=== PATIENT | female | born 1990 | race Caucasian/White ===

== ENCOUNTER 2018-04-24 16:34 | Emergency (ER) | payer OTHER ==
[~2018-04-24] VITALS: Ht 157.5 cm; Wt 54.4 kg
[~2018-04-24 16:34] MED LIST: ASCO500 PO; ASPI81CH PO; Aspir 8181 MG PO; BIRTH CONTROL; Bactrim Ds Tab1 EACH PO; CEPH500 PO; CIPRO; CITA20 PO; DHA100 MG PO; DIAZ5 PO; ENOX40I SC; HYDACE5 PO; HYDACE5325 PO; HYDMOR4 PO; IBUP800 PO; KETO10 PO; MULVITMIND PO; MULVITMINE PO; NAPR500 PO; ONDA4ODT MM; OXYACE5T PO; PREN-16 PO; PRENATAL; Percocet 5-3251 EACH PO; Prenatal Vitam1 EAC4 PO; Pyridium200 MG PO; RXHYDMOR2 PO; RXONDA4ODT MM; Roxicodone5 MG PO; TRAM50 PO; WARF5 PO; Zofran Odt4 MG SL; [UNRECOGNIZED DRUG - REMARK]
== END 2018-04-24 21:31 | disposition home or self-care (01) ==
LOC: ER 16:34
DX: G50.0 Trigeminal neuralgia (principal); Z91.010 Allergy to peanuts; Z88.8 Allergy status to other drugs, medicaments and biological substances; Z79.899 Other long term (current) drug therapy
CPT/HCPCS: 70450; 96365; 99283-25; J1165